=== PATIENT | male | born 1935 | race Caucasian/White ===

== ENCOUNTER 2017-03-17 09:56 | Emergency (ER) | payer OTHER, MEDICARE ==
[~2017-03-17] VITALS: Ht 165.1 cm; Wt 51.7 kg
[2017-03-17 10:00] VITALS: BP 170/66
[2017-03-17] MEDS ORDERED: GABAPENTIN600 M1 PO (10:29)
[2017-03-17] MEDS ORDERED: LISINOPRIL10 M1 PO (10:29)
[2017-03-17] MEDS ORDERED: CLONAZEPAM0.5 M2 PO (10:29)
[2017-03-17] MEDS ORDERED: ATORVASTATIN CA80 M1 PO (10:30)
[2017-03-17] MEDS ORDERED: LIDOCAINE1 EACH TOP (10:30)
[2017-03-17] MEDS ORDERED: VITAMIN D1000 UNIT PO (10:30)
[2017-03-17] MEDS ORDERED: [UNRECOGNIZED DRUG - OTHER] TOP (10:31)
--- NOTE | 2017-03-17 10:41 | ED NECK/BACK PAIN COMPLAINT ---
History of Present Illness General Chief Complaint: General Adult Stated Complaint: SOMETHING IS CRAWLING INSIDE MY SKIN Source: patient, old records Exam Limitations: no limitations Vital Signs & Intake/Output Vital Signs & Intake/Output Vital Signs Date Time Temp Pulse Resp B/P B/P Pulse O2 O2 Flow FiO2 Mean Ox Delivery Rate 03/17 1000 97.3 76 16 170/66 96 Room Air Allergies Coded Allergies: NO KNOWN ALLERGIES (UNKNOWN 01/31/17) Reconcile Medications Atorvastatin Calcium 80 MG TABLET 1 TAB PO DAILY CHOLESTEROL (Reported) Cholecalciferol (Vitamin D3) (Vitamin D) 1,000 UNIT TABLET 1 TAB PO DAILY VITAMIN SUPPORT (Reported) Clonazepam 0.5 MG TABLET 1 TAB PO DAILY NEEDED PRN ANXIETY (Reported) Cyclobenzaprine HCl 5 MG TABLET 1 TAB PO TIDPRN PRN MUSCLE SPASM Cyclobenzaprine HCl 5 MG TABLET 1 TAB PO TIDPRN PRN MUSCLE SPASM Gabapentin 600 MG TABLET 1 TAB PO TID UNKNOWN (Reported) Lidocaine 5 % ADH..PATCH 1 PAT TOP DAILY PAIN (Reported) Lisinopril 10 MG TABLET 1 TAB PO DAILY HEART (Reported) Salicylic Acid (Callus Remover) 40 % ADH..PATCH 1 PAT TOP DAILY PRN UNKNOWN ( Reported) Triage Note: 81 Y/O MALE STATING "I FEEL LIKE THERES SOMETHING CRAWLING UNDER MY SKIN" X 1 WEEK. STATES HE HAS THE SENSATION TO R UPPER BACK; CONSTANT SINCE ONSET. NO REDNESS, BRUISES OR ANYTHING NOTED TO SKIN. PT STATES HE FEELS IT "UNDER" THE SKIN. DENIES PAIN. DENIES ITCHING. DENIES OTHER COMPLAINTS. Triage Nurses Notes Reviewed? yes HPI: Patient presents concerned that he has something crawling underneath his skin. Patient states that around his left shoulder blade he feels a reported like structure that is painful to palpation and he has a tingling sensation to his left shoulder blade area. The symptoms have been going on for the past 4 days. No aggravating or mitigating factors. There is no radiation. Patient denies any pain except when he is touching that area. Patient states he already is touching and has to really present for to hurt that, there is no pain with light palpation. There is no weakness or numbness. Past History Travel History Traveled to [place] past 21 day No Medical History Any Pertinent Medical History? 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 No Review of Systems Review of Systems Constitutional: Reports: no symptoms. Ears, Nose, Throat, Mouth: Reports: no symptoms. Respiratory: Reports: no symptoms. Cardiovascular: Reports: no symptoms. Musculoskeletal: Reports: see HPI. Neurological/Psychological: Reports: see HPI. Physical Exam Physical Exam General Appearance: well developed/nourished, alert, awake Head: atraumatic, normal appearance Eyes: Bilateral: PERRL, EOMI. Ears, Nose, Throat, Mouth: hearing grossly normal, moist mucous membrane Neck: normal inspection, supple, full range of motion Respiratory: normal breath sounds, chest non-tender, no respiratory distress, lungs clear Cardiovascular: regular rate/rhythm, normal peripheral pulses Gastrointestinal: normal bowel sounds, soft, non-tender Back: muscle spasm, no vertebral tenderness Extremities: non-tender, normal range of motion Neurologic/Psych: no motor/sensory deficits, awake, alert, oriented x 3, normal gait, normal mood/affect Progress Differential Diagnosis: myofascial strain Plan of Care: Orders Procedure Date/time Status XRY-SCAPULA, RIGHT 03/17 1041 Active Diagnostic Imaging: Viewed by Me: Radiology Read. Discussed w/RAD: Radiology Read. Radiology Impression: PATIENT: FLACO ZACARIAS PRESENT AGE: 81 PATIENT ACCOUNT NO: [id number] : 37 LOCATION: [facility] ORDERING PHYSICIAN: ABIOLA AVENDAÑO MD SERVICE DATE: 03/17/17 EXAM TYPE: RAD - XRY-SCAPULA, RIGHT EXAMINATION: XR SCAPULA, RIGHT CLINICAL INFORMATION: Pain COMPARISON: None TECHNIQUE: 3 views of the right scapula. FINDINGS: Normal bony mineralization. Degenerative hypertrophic changes right acromioclavicular joint. Mild degenerative changes right inferior glenohumeral joint. Minor hypertrophic changes noted adjacent to the record process. Humeral head maintains normal round contour. No acute bony destructive changes identified. Visualized right- sided ribs appear unremarkable. No suspicious lung abnormality. IMPRESSION: Degenerative hypertrophic changes. No acute or suspicious osseous abnormality. DICTATED BY: IVETTE LINK MD DATE/TIME DICTATED:03/17/171113 PLANT WRAPPER:JANY DATE/TIME TRANSCRIBED:03/17/171113 CONFIDENTIAL, DO NOT COPY WITHOUT APPROPRIATE AUTHORIZATION. <Electronically signed in Other Vendor System> SIGNED BY: IVETTE LINK MD 03/17/171118 Departure Departure Disposition: HOME OR SELF CARE Condition: Stable Clinical Impression Primary Impression: Muscle spasm of back Referrals: UNKNOWN (PCP/Family) Additional Instructions: USE MOIST HEATQ RETURN IF SYMTPOMS WORSEN OR FOR ANY CONCERNS Departure Forms: Customer Survey General Discharge Information Prescriptions: Current Visit Scripts Cyclobenzaprine HCl 1 TAB PO TIDPRN PRN MUSCLE SPASM #30 TAB Cyclobenzaprine HCl 1 TAB PO TIDPRN PRN MUSCLE SPASM #30 TAB
--- NOTE | 2017-03-17 11:19 | RADIOLOGY REPORT ---
EXAMINATION: XR SCAPULA, RIGHT CLINICAL INFORMATION: Pain COMPARISON: None TECHNIQUE: 3 views of the right scapula. FINDINGS: Normal bony mineralization. Degenerative hypertrophic changes right acromioclavicular joint. Mild degenerative changes right inferior glenohumeral joint. Minor hypertrophic changes noted adjacent to the record process. Humeral head maintains normal round contour. No acute bony destructive changes identified. Visualized right-sided ribs appear unremarkable. No suspicious lung abnormality. IMPRESSION: Degenerative hypertrophic changes. No acute or suspicious osseous abnormality.
[2017-03-17] MEDS ORDERED: CYCLOBENZAPRINE5 M2 PO ×2 (11:30→11:34)
== END 2017-03-17 11:36 ==
LOC: ERH 09:56
DX: M62.830 Muscle spasm of back (principal)
CPT/HCPCS: 73010-RT